=== PATIENT | female | born 1955 | race Caucasian/White ===

== ENCOUNTER 2022-02-15 12:37 | Emergency (ER) | payer OTHER ==
[~2022-02-15] VITALS: Ht 157.5 cm; Wt 93.9 kg
[~2022-02-15 12:37] MED LIST: TARKA 1/2401 BOTTLE
[2022-02-15] MEDS ORDERED: GLIMEPIRIDE4 MG (12:56)
[2022-02-15] MEDS ORDERED: GLUMETZA1000 MG (12:56)
[2022-02-15] MEDS ORDERED: ZITHROMAX500 MG PO (16:21)
[2022-02-15] MEDS ORDERED: TUSSI PRES-B L480 ML PO (16:21)
== END 2022-02-15 16:30 | disposition home or self-care (01) ==
LOC: ER 12:37
DX: B34.9 Viral infection, unspecified (principal); Z20.822 Contact with and (suspected) exposure to COVID-19

== ENCOUNTER 2023-11-05 19:37 | Emergency (ER) | payer OTHER ==
[~2023-11-05] VITALS: Ht 157.5 cm; Wt 92.1 kg
[~2023-11-05 19:37] MED LIST changes: +GLIMEPIRIDE4 MG; +GLUMETZA1000 MG; +TUSSI PRES-B L480 ML PO; +ZITHROMAX500 MG PO
[2023-11-05] MEDS ORDERED: SILVER SULFADIAZINE 50 GM JAR TOP ONE (21:00)
[2023-11-05] MEDS ORDERED: CEFTRIAXONE SODIUM 1,000 MG VIAL IM ONE (21:00)
== END 2023-11-05 21:25 | disposition home or self-care (01) ==
LOC: ER 19:39
DX: T22.20XA Burn of second degree of shoulder and upper limb, except wrist and hand, unspecified site, initial encounter (principal); X13.1XXA Other contact with steam and other hot vapors, initial encounter; Y93.89 Activity, other specified; Y92.89 Other specified places as the place of occurrence of the external cause; Y99.9 Unspecified external cause status; Z88.0 Allergy status to penicillin; Z91.040 Latex allergy status; I10 Essential (primary) hypertension; E11.9 Type 2 diabetes mellitus without complications; Z79.84 Long term (current) use of oral hypoglycemic drugs